=== PATIENT | female | born 1975 | race Caucasian/White ===

== ENCOUNTER 2024-05-29 05:46 | Emergency (ER) | payer BC ==
[2024-05-29] MEDS ORDERED: Cyclobenzaprine 10 MG TAB ONE (06:08)
[2024-05-29] MEDS ORDERED: Ketorolac Tromethamine 30 MG (1 mL) VIAL ONE (06:08)
[2024-05-29] MEDS ORDERED: predniSONE 20 MG TAB ONE (06:18)
== END 2024-05-29 06:40 | disposition home or self-care (01) ==
LOC: ERS 05:46
DX: M54.42 Lumbago with sciatica, left side (principal); Z75.3 Unavailability and inaccessibility of health-care facilities; Z87.891 Personal history of nicotine dependence
CPT/HCPCS: 96372; 99282; J1885; J7512